=== PATIENT | female | born 2000 | race Two or more races ===

== ENCOUNTER 2022-08-11 09:22 | Outpatient (CLI) | payer MEDICAID, SELFPAY ==
[2022-08-11 15:32] LABS: GC DNA Amplified* NOT DETECTED (No Detected)
[2022-08-11 15:41] LABS: Chlamydia DNA Amplified* DETECTED (No Detected)
== END 2022-08-11 09:23 | disposition home or self-care (01) ==
LOC: NFLDREF 09:23
PROVIDERS: Visit Provider Registered Nurse
DX: Z11.3 Encounter for screening for infections with a predominantly sexual mode of transmission (principal)
CPT/HCPCS: 87491; 87591

== ENCOUNTER 2023-03-14 08:44 | Outpatient (CLI) | payer MEDICAID, SELFPAY | END 2023-03-14 08:45 | disposition home or self-care (01) | PROVIDERS: Visit Provider Obstetrics & Gynecology | DX: O03.9 Complete or unspecified spontaneous abortion without complication (principal) | CPT/HCPCS: 84702; 86850; 86900; 86901 ==